=== PATIENT | female | born 1970 | race Two or more races ===

== ENCOUNTER 2018-03-27 14:55 | Outpatient (CLI) | payer OTHER | END 2018-03-27 15:03 | disposition home or self-care (01) | LOC: RAD 501 14:55 | DX: M25.561 Pain in right knee (principal); M25.572 Pain in left ankle and joints of left foot ==

== ENCOUNTER 2018-09-28 11:40 | Outpatient (CLI) | payer OTHER ==
[~2018-09-28] VITALS: Ht 157.5 cm; Wt 59.0 kg
== END 2018-09-28 12:00 | disposition home or self-care (01) ==
LOC: OFIC 805 11:40
DX: J32.8 Other chronic sinusitis (principal); R07.0 Pain in throat

== ENCOUNTER 2019-01-27 18:02 | Emergency (ER) | payer OTHER ==
[~2019-01-27] VITALS: Ht 157.5 cm; Wt 61.2 kg
== END 2019-01-27 19:53 | disposition home or self-care (01) ==
LOC: ER 18:02
DX: S60.571A Other superficial bite of hand of right hand, initial encounter (principal); W55.01XA Bitten by cat, initial encounter; Y93.89 Activity, other specified; Y92.89 Other specified places as the place of occurrence of the external cause; Y99.8 Other external cause status

== ENCOUNTER 2019-04-17 16:16 | Outpatient (CLI) | payer OTHER | END 2019-04-17 16:18 | disposition home or self-care (01) | LOC: RAD 16:16 | DX: J45.998 Other asthma (principal); J01.80 Other acute sinusitis ==

== ENCOUNTER 2019-05-05 08:17 | Emergency (ER) | payer OTHER ==
[~2019-05-05] VITALS: Ht 157.5 cm; Wt 64.0 kg
[2019-05-05] MEDS ORDERED: [UNRECOGNIZED DRUG - OTHER] (08:51)
[2019-05-05] MEDS ORDERED: CIPRO500 MG PO (08:52)
== END 2019-05-05 12:56 | disposition home or self-care (01) ==
LOC: ER 08:17
DX: R05 Cough (principal); R30.0 Dysuria

== ENCOUNTER 2019-05-12 11:27 | Outpatient (CLI) | payer OTHER ==
[~2019-05-12 11:27] MED LIST: CIPRO500 MG PO; [UNRECOGNIZED DRUG - OTHER]
== END 2019-05-12 11:36 | disposition home or self-care (01) ==
LOC: TOM 11:27
DX: N20.0 Calculus of kidney (principal); N39.0 Urinary tract infection, site not specified

== ENCOUNTER → 2019-05-13 07:31 | Outpatient (CLI) | payer OTHER | END | disposition home or self-care (01) | LOC: LAB 07:31 | DX: N39.0 Urinary tract infection, site not specified (principal); N20.0 Calculus of kidney ==

== ENCOUNTER 2020-03-07 12:02 | Emergency (ER) | payer OTHER ==
[~2020-03-07] VITALS: Ht 157.5 cm; Wt 61.2 kg
== END 2020-03-07 17:05 | disposition home or self-care (01) ==
LOC: ER 12:02
DX: S92.491A Other fracture of right great toe, initial encounter for closed fracture (principal); S91.221A Laceration with foreign body of right great toe with damage to nail, initial encounter; W22.8XXA Striking against or struck by other objects, initial encounter; Y93.89 Activity, other specified; Y92.89 Other specified places as the place of occurrence of the external cause; Y99.8 Other external cause status

== ENCOUNTER → 2020-11-29 08:22 | Outpatient (CLI) | payer OTHER | END | disposition home or self-care (01) | LOC: LAB 08:22 | PROVIDERS: ATTEND Dermatology | DX: Z20.828 Contact with and (suspected) exposure to other viral communicable diseases (principal) ==

== ENCOUNTER → 2020-12-24 08:52 | Outpatient (CLI) | payer OTHER | END | disposition home or self-care (01) | LOC: LAB 08:52 | DX: Z20.828 Contact with and (suspected) exposure to other viral communicable diseases (principal); Z20.822 Contact with and (suspected) exposure to COVID-19; Z11.52 Encounter for screening for COVID-19; Z86.16 Personal history of COVID-19; R05 Cough ==

== ENCOUNTER → 2021-01-10 08:08 | Outpatient (CLI) | payer OTHER | END | disposition home or self-care (01) | LOC: LAB 08:08 | PROVIDERS: ATTEND General Practice | DX: R05 Cough (principal); Z20.828 Contact with and (suspected) exposure to other viral communicable diseases; Z20.822 Contact with and (suspected) exposure to COVID-19; Z11.52 Encounter for screening for COVID-19; Z86.16 Personal history of COVID-19 ==

== ENCOUNTER 2022-03-09 10:08 | Outpatient (CLI) | payer OTHER | END 2022-03-09 10:15 | disposition home or self-care (01) | LOC: RAD 10:08 | PROVIDERS: ATTEND Internal Medicine | DX: M79.642 Pain in left hand (principal) ==

== ENCOUNTER 2022-03-22 11:52 | Outpatient (CLI) | payer OTHER | END 2022-03-22 11:59 | disposition home or self-care (01) | LOC: RAD 11:52 | PROVIDERS: ATTEND Physical Medicine & Rehabilitation | DX: M54.59 Other low back pain (principal) ==

== ENCOUNTER → 2022-08-16 | Outpatient (CLI) | payer OTHER | END | disposition home or self-care (01) | LOC: RAD 13:34 | DX: M48.06 Spinal stenosis, lumbar region (principal) ==